=== PATIENT | male | born 1950 | race Caucasian/White ===

== ENCOUNTER → 2023-08-28 | Outpatient (CLI) | payer MEDICARE | END | disposition home or self-care (01) | LOC: RAD 15:57 | PROVIDERS: ATTEND Nurse Practitioner Family | DX: M47.27 Other spondylosis with radiculopathy, lumbosacral region (principal); M48.061 Spinal stenosis, lumbar region without neurogenic claudication | CPT/HCPCS: 72100 ==

== ENCOUNTER → 2023-10-02 | Outpatient (CLI) | payer MEDICARE | END | disposition home or self-care (01) | LOC: RAD 10:32 | PROVIDERS: ATTEND Nurse Practitioner Family | DX: M47.26 Other spondylosis with radiculopathy, lumbar region (principal); M48.061 Spinal stenosis, lumbar region without neurogenic claudication | CPT/HCPCS: 72148 ==

== ENCOUNTER → 2023-12-05 | Outpatient (CLI) | payer MEDICARE | END | disposition home or self-care (01) | LOC: RAD 10:01 | PROVIDERS: ATTEND Specialist | DX: Z01.810 Encounter for preprocedural cardiovascular examination (principal); I08.1 Rheumatic disorders of both mitral and tricuspid valves; I25.10 Atherosclerotic heart disease of native coronary artery without angina pectoris; I10 Essential (primary) hypertension; R00.1 Bradycardia, unspecified; E78.5 Hyperlipidemia, unspecified; Z95.1 Presence of aortocoronary bypass graft | CPT/HCPCS: 78452; 93306; A9500 ==

== ENCOUNTER → 2023-12-05 | Outpatient (CLI) | payer MEDICARE ==
[2023-12-05 14:41] LABS: BASOPHIL % 0.7 % (0.0-0.2); EOSINOPHIL # 0.2 10^3/uL (0.0-0.2); EOSINOPHIL % 5.3 % (0.0-5.0); HEMATOCRIT(ML) 43.2 % (37.0-53.0); HEMOGLOBIN 14.9 g/dL (13.9-16.3); LYMPHOCYTES # 1.33 10^3/uL1 (1.0-4.8); LYMPHOCYTES % 31.9 % (24.0-44.0); MEAN CORP HGB 32.3 pg (26-34); MEAN CORP HGB CONCENTRATION 34.5 g/dL (33-36.5); MEAN CORP VOLUME 93.7 fL (78-100); MONOCYTES # 0.4 10^3/uL (0.3-0.8); MONOCYTES % 8.4 % (5.0-12.0); NEUTROPHIL # 2.2 10^3/uL (1.8-7.7); NEUTROPHILS % 53.5 % (41.0-85.0); PLATELET COUNT 193 10^3/uL (150-400); RED BLOOD CELL 4.61 10^6/uL (4.50-5.90); RED CELL DISTRIBUTION WIDTH 11.9 % (11.5-14.5); WHITE BLOOD CELL 4.2 10^3/uL (4.5-11.0)
[2023-12-05 14:42] LABS: +ADD MANUAL DIFF(NO CHRG) NO
[2023-12-05 17:46] LABS: ALBUMIN(ML) 3.9 g/dL (3.4-5.0); ALBUMIN/GLOBULIN RATIO 1.218; ANION GAP 11.5; BUN/CREATININE RATIO 14.67 (10.0-20.0); C-REACTIVE PROTEIN 0.18 mg/dL (0.00-5.00); CALCIUM 8.8 mg/dL (8.4-10.5); CARBON DIOXIDE 27.4 mmol/L (20.0-32); CREATININE SERUM 1.09 mg/dL (0.59-1.40); EST GFR, NON-AA 66.7 (>/=60); LDL/HDL RATIO 1.3; POTASSIUM 3.9 mmol/L (3.6-5.2)
== END | disposition home or self-care (01) ==
LOC: NPLAB 13:32
PROVIDERS: ATTEND Specialist
DX: I10 Essential (primary) hypertension (principal); E78.00 Pure hypercholesterolemia, unspecified; E55.9 Vitamin D deficiency, unspecified
CPT/HCPCS: 36415; 80053; 80061; 82306; 84439; 84443; 85025; 86140

== ENCOUNTER → 2023-12-15 | Outpatient (CLI) | payer MEDICARE ==
[2023-12-15 10:04] LABS: PROTHROMBIN PROTIME 10.6 SEC (9.7-11.6)
== END | disposition home or self-care (01) ==
LOC: LAB 08:00
PROVIDERS: ATTEND Nurse Practitioner Family
DX: Z01.812 Encounter for preprocedural laboratory examination (principal); E78.5 Hyperlipidemia, unspecified; I10 Essential (primary) hypertension; I25.2 Old myocardial infarction; Z79.01 Long term (current) use of anticoagulants
CPT/HCPCS: 36415; 85610; 85730

== ENCOUNTER → 2024-07-23 | Outpatient (CLI) | payer MEDICARE | END | disposition home or self-care (01) | LOC: RAD 10:14 | PROVIDERS: ATTEND Orthopaedic Surgery | DX: S52.611A Displaced fracture of right ulna styloid process, initial encounter for closed fracture (principal); M19.041 Primary osteoarthritis, right hand; X58.XXXA Exposure to other specified factors, initial encounter; Y93.89 Activity, other specified; Y92.89 Other specified places as the place of occurrence of the external cause; Y99.9 Unspecified external cause status | CPT/HCPCS: 73130-RT ==

== ENCOUNTER 2024-09-04 05:55 | Day surgery (SDC) | payer MEDICARE ==
[2024-09-02 14:21] VITALS: BP 134/67; PULSE 45; RESP 18; TEMP 98.1; O2SAT 96
[2024-09-02 15:20] LABS: BASOPHIL % 0.8 % (0.2-1.2); EOSINOPHIL # 0.3 10^3/uL (0.0-0.2); EOSINOPHIL % 4.9 % (0.0-5.0); HEMATOCRIT(ML) 41.5 % (37.0-53.0); HEMOGLOBIN 14.1 g/dL (13.9-16.3); LYMPHOCYTES # 1.69 10^3/uL1 (1.0-4.8); LYMPHOCYTES % 33.4 % (24.0-44.0); MEAN CORP HGB 32.4 pg (26-34); MEAN CORP VOLUME 95.4 fL (78-100); MONOCYTES # 0.5 10^3/uL (0.3-0.8); MONOCYTES % 9.5 % (5.0-12.0); NEUTROPHIL # 2.6 10^3/uL (1.8-7.7); NEUTROPHILS % 51.2 % (41.0-85.0); PLATELET COUNT 163 10^3/uL (150-400); RED BLOOD CELL 4.35 10^6/uL (4.50-5.90); RED CELL DISTRIBUTION WIDTH 12.2 % (11.5-14.5); WHITE BLOOD CELL 5.1 10^3/uL (4.5-11.0)
[2024-09-02 15:21] LABS: +ADD MANUAL DIFF(NO CHRG) NO
[2024-09-02 15:37] LABS: ALBUMIN(ML) 3.8 g/dL (3.4-5.0); ALBUMIN/GLOBULIN RATIO 1.117; ANION GAP 11.7; CALCIUM 9.1 mg/dL (8.4-10.5); CARBON DIOXIDE 29.3 mmol/L (20.0-32); CREATININE SERUM 0.96 mg/dL (0.59-1.40)
[2024-09-02 15:50] LABS: BUN/CREATININE RATIO 14.58 (10.0-20.0)
[~2024-09-04] VITALS: Ht 175.3 cm; Wt 88.5 kg
[2024-09-04] VITALS (21 sets, daily range): BP systolic 124–173; BP diastolic 7–96; PULSE 40–61; RESP 16–18; TEMP 97.4–98.1; O2SAT 92–100
[~2024-09-04 05:55] MED LIST: AMLO-169 PO; EZET10TA81 PO; LEVO25TA4 PO
[2024-09-04] MEDS ORDERED: NS 1000ML 1,000 ML ONE ×2 (06:00→07:57)
[2024-09-04] MEDS ORDERED: ANCEF 2 GM/D5W 50ML 50 ML IV ONE (06:00)
[2024-09-04] MEDS: NS 1000ML 1,000 ML IV ONE (06:35)
[2024-09-04] MEDS ORDERED: ROSU40TA PO (06:39)
[2024-09-04] MEDS ORDERED: LEVO50TA6 PO (06:39)
[2024-09-04] MEDS ORDERED: SODIUM CHLORIDE IRR BOTTLE IR ONE (07:22)
[2024-09-04] MEDS ORDERED: LIDOCAINE 1% VIAL ONE (07:22)
[2024-09-04] MEDS ORDERED: XYLOCAINE 1%-EPI 1:100,000 ONE (07:23)
[2024-09-04] MEDS ORDERED: DIPRIVAN IV ONE ×3 (07:35→09:06)
[2024-09-04] MEDS: ANCEF 2 GM/D5W 50ML 50 ML IV ONE (07:53)
== END 2024-09-04 11:37 | disposition home or self-care (01) ==
LOC: SDC 05:55
PROVIDERS: ATTEND Orthopaedic Surgery
DX: M18.11 Unilateral primary osteoarthritis of first carpometacarpal joint, right hand (principal); I10 Essential (primary) hypertension; G89.29 Other chronic pain; I25.10 Atherosclerotic heart disease of native coronary artery without angina pectoris; E78.2 Mixed hyperlipidemia; E03.9 Hypothyroidism, unspecified; Z95.5 Presence of coronary angioplasty implant and graft; Z79.890 Hormone replacement therapy; Z79.899 Other long term (current) drug therapy
CPT/HCPCS: 80053; 85025; 36415; 93005; 25448; 73130; J7030 ×2; C1713; A4649; J0690 ×2; J2003; A4217; J2704 ×3; 76000

== ENCOUNTER → 2024-09-30 | Outpatient (CLI) | payer MEDICARE ==
[~2024-09-30] MED LIST changes: +LEVO50TA6 PO; +ROSU40TA PO
== END | disposition home or self-care (01) ==
LOC: RAD 08:38
PROVIDERS: ATTEND Nurse Practitioner
DX: M18.11 Unilateral primary osteoarthritis of first carpometacarpal joint, right hand (principal); M19.041 Primary osteoarthritis, right hand
CPT/HCPCS: 73130-RT

== ENCOUNTER 2025-06-30 14:17 | Observation (INO) | payer MEDICARE ==
[~2025-06-30] VITALS: Ht 175.3 cm; Wt 87.5 kg
[2025-06-30 15:06] VITALS: BP 166/66; PULSE 56; RESP 18; TEMP 98; O2SAT 98
[2025-06-30] MEDS ORDERED: VANCOMYCIN 1.5 GM/300 ML BAG 300 ML IV ONE (15:51)
[2025-06-30] MEDS ORDERED: NS 100ML 100 ML IV ONE ×2 (15:52→21:42)
[2025-06-30 16:00] VITALS: BP 154/65; PULSE 48; RESP 18; TEMP 98; O2SAT 98
[2025-06-30] MEDS: ZOSYN 3.375 GM 3.375 GM in NS 100ML 100 ML IV STA (16:01)
[2025-06-30] MEDS: VANCOMYCIN 1.5 GM/300 ML BAG 300 ML IV STA (16:02)
[2025-06-30 16:15] LABS: BASOPHIL # 0.0 10^3/uL (0.0-0.1); BASOPHIL % 0.7 % (0.2-1.2); EOSINOPHIL # 0.2 10^3/uL (0.0-0.2); EOSINOPHIL % 2.7 % (0.0-5.0); HEMATOCRIT(ML) 41.4 % (37.0-53.0); IG % 0.00 % (0.00-0.50); LYMPHOCYTES # 1.62 10^3/uL1 (1.0-4.8); LYMPHOCYTES % 29.0 % (24.0-44.0); MEAN CORP HGB 32.7 pg (26-34); MEAN CORP HGB CONCENTRATION 33.8 g/dL (33-36.5); MEAN CORP VOLUME 96.7 fL (78-100); MONOCYTES # 0.6 10^3/uL (0.3-0.8); MONOCYTES % 10.6 % (5.0-12.0); NEUTROPHIL # 3.2 10^3/uL (1.8-7.7); NEUTROPHILS % 57.0 % (41.0-85.0); RED BLOOD CELL 4.28 10^6/uL (4.50-5.90); RED CELL DISTRIBUTION WIDTH 11.3 % (11.5-14.5); WHITE BLOOD CELL 5.6 10^3/uL (4.5-11.0)
[2025-06-30 16:16] LABS: ALANINE AMINOTRANSFERASE(ML) 61.0 U/L (12-78); ALBUMIN(ML) 3.3 g/dL (3.4-5.0); CREATININE SERUM 0.78 mg/dL (0.59-1.40); EST GFR, NON-AA 97.8 (>/=60)
[2025-06-30 17:00] VITALS: BP 149/61; PULSE 46; RESP 18; TEMP 98; O2SAT 98
[2025-06-30 18:00] VITALS: BP 154/62; PULSE 49; RESP 18; TEMP 98; O2SAT 98
[2025-06-30 19:00] VITALS: BP 158/65; PULSE 50; RESP 18; TEMP 98; O2SAT 98
[2025-06-30 19:40] VITALS: BP 138/70; PULSE 46; RESP 20; TEMP 96; O2SAT 99
[2025-06-30] MEDS ORDERED: ACET325T12 PO (21:03)
[2025-06-30] MEDS ORDERED: HYDR-3105 PO (21:13)
[2025-06-30] MEDS ORDERED: PREG100C PO (21:13)
[2025-06-30] MEDS ORDERED: NS 250ML 250 ML ONE (21:43)
[2025-06-30] MEDS: LOVENOX SQ SCH (21:51)
[2025-06-30] MEDS ORDERED: MORPHINE SULFATE IV PRN ×2 (22:00→22:30)
[2025-06-30] MEDS ORDERED: APRESOLINE IV PRN (22:00)
[2025-06-30] MEDS ORDERED: DEXTROSE 50%-WATER SYRINGE IV PRN (22:00)
[2025-06-30] MEDS ORDERED: ZOFRAN IV PRN (22:00)
[2025-06-30] MEDS: ZOSYN 3.375 GM 3.375 GM in NS 100ML 100 ML IV SCH (22:45)
[2025-07-01 00:20] VITALS: BP_SYST 133; BP_SYST 138; BP_DIAS 62; BP_DIAS 70; PULSE 46; PULSE 48; RESP 20; TEMP 96; TEMP 97.6; O2SAT 95; O2SAT 99
[2025-07-01 03:31] VITALS: BP 127/65; PULSE 47; RESP 20; TEMP 97.6; O2SAT 96
[2025-07-01] MEDS: VANCOMYCIN 1 GRAM/200 ML BAG 200 ML IV SCH (03:43)
[2025-07-01 05:13] LABS: BASOPHIL # 0.0 10^3/uL (0.0-0.1); BASOPHIL % 1.0 % (0.2-1.2); EOSINOPHIL # 0.2 10^3/uL (0.0-0.2); EOSINOPHIL % 5.1 % (0.0-5.0); HEMATOCRIT(ML) 36.1 % (37.0-53.0); IG % 0.30 % (0.00-0.50); LYMPHOCYTES # 1.25 10^3/uL1 (1.0-4.8); LYMPHOCYTES % 31.6 % (24.0-44.0); MEAN CORP HGB 33.2 pg (26-34); MEAN CORP HGB CONCENTRATION 35.5 g/dL (33-36.5); MEAN CORP VOLUME 93.8 fL (78-100); MONOCYTES # 0.5 10^3/uL (0.3-0.8); MONOCYTES % 11.6 % (5.0-12.0); NEUTROPHIL # 2.0 10^3/uL (1.8-7.7); NEUTROPHILS % 50.4 % (41.0-85.0); RED BLOOD CELL 3.85 10^6/uL (4.50-5.90); RED CELL DISTRIBUTION WIDTH 11.5 % (11.5-14.5); WHITE BLOOD CELL 4.0 10^3/uL (4.5-11.0)
[2025-07-01 05:30] LABS: ALANINE AMINOTRANSFERASE(ML) 51.0 U/L (12-78); ALBUMIN(ML) 2.9 g/dL (3.4-5.0); CREATININE SERUM 0.82 mg/dL (0.59-1.40); EST GFR, NON-AA 92.4 (>/=60)
[2025-07-01] MEDS ORDERED: NS 100ML 100 ML IV ONE ×2 (05:34→20:30)
[2025-07-01 07:47] VITALS: BP 130/73; PULSE 47; RESP 18; TEMP 97.7; O2SAT 95
[2025-07-01 10:58] VITALS: BP 136/79; PULSE 51; RESP 18; TEMP 97.8; O2SAT 95
[2025-07-01] MEDS: NORCO 10MG PO ONE (11:14)
[2025-07-01 16:38] VITALS: BP 106/63; PULSE 46; RESP 18; TEMP 97.4; O2SAT 97
[2025-07-01 19:17] VITALS: BP 113/46; PULSE 47; RESP 20; TEMP 98.4; O2SAT 97
[2025-07-01] MEDS: NORCO 10MG PO SCH (20:33)
[2025-07-02 00:20] VITALS: BP 109/56; PULSE 44; RESP 16; TEMP 97.5; O2SAT 95
[2025-07-02 04:26] VITALS: BP 118/62; PULSE 40; RESP 18; TEMP 97.5; O2SAT 96
[2025-07-02] MEDS ORDERED: NS 100ML 100 ML IV ONE ×2 (04:29→12:55)
[2025-07-02 05:21] LABS: BASOPHIL # 0.1 10^3/uL (0.0-0.1); BASOPHIL % 1.1 % (0.2-1.2); EOSINOPHIL # 0.3 10^3/uL (0.0-0.2); EOSINOPHIL % 5.7 % (0.0-5.0); HEMATOCRIT(ML) 36.6 % (37.0-53.0); IG % 0.20 % (0.00-0.50); LYMPHOCYTES # 1.88 10^3/uL1 (1.0-4.8); LYMPHOCYTES % 41.1 % (24.0-44.0); MEAN CORP HGB 32.3 pg (26-34); MEAN CORP HGB CONCENTRATION 34.4 g/dL (33-36.5); MEAN CORP VOLUME 93.8 fL (78-100); MONOCYTES # 0.4 10^3/uL (0.3-0.8); MONOCYTES % 8.3 % (5.0-12.0); NEUTROPHIL # 2.0 10^3/uL (1.8-7.7); NEUTROPHILS % 43.6 % (41.0-85.0); RED BLOOD CELL 3.90 10^6/uL (4.50-5.90); RED CELL DISTRIBUTION WIDTH 11.6 % (11.5-14.5); WHITE BLOOD CELL 4.6 10^3/uL (4.5-11.0)
[2025-07-02 05:56] LABS: ALANINE AMINOTRANSFERASE(ML) 50.0 U/L (12-78); ALBUMIN(ML) 2.9 g/dL (3.4-5.0); CREATININE SERUM 0.97 mg/dL (0.59-1.40); EST GFR, NON-AA 76.1 (>/=60)
[2025-07-02 08:58] VITALS: BP 139/63; PULSE 50; RESP 20; TEMP 98.1; O2SAT 95
[2025-07-02] MEDS ORDERED: AMOX1TAB12 PO (11:31)
[2025-07-02 12:09] VITALS: BP 141/70; PULSE 56; RESP 20; TEMP 98; O2SAT 95
[2025-07-02] MEDS ORDERED: WATER 20 ML ONE (12:54)
[2025-07-02 14:14] VITALS: BP 141/70; PULSE 56; RESP 20; TEMP 98; O2SAT 95
== END 2025-07-02 14:10 | disposition home or self-care (01) ==
LOC: ER 14:17 → OBS 17:46
PROVIDERS: ADMIT Hospitalist; ATTEND Hospitalist
DX: L03.116 Cellulitis of left lower limb (principal); E03.9 Hypothyroidism, unspecified; I10 Essential (primary) hypertension; M79.89 Other specified soft tissue disorders; R60.0 Localized edema; G62.9 Polyneuropathy, unspecified; E78.00 Pure hypercholesterolemia, unspecified; Z79.899 Other long term (current) drug therapy
CPT/HCPCS: 96372 ×2; 96365; 96366 ×3; 96368; 99285; 73610; 73630; 93971; 80053 ×3; 85025 ×3; 36415 ×3; 85651; 86140; 83036; 83735; G0378 ×4; J7050; J1650 ×2; J2543 ×3; A4216; 80202

== ENCOUNTER 2025-07-13 08:38 | Emergency (ER) | payer MEDICARE ==
[~2025-07-13] VITALS: Ht 175.3 cm; Wt 86.2 kg
[~2025-07-13 08:38] MED LIST changes: +ACET325T12 PO; +AMOX1TAB12 PO; +HYDR-3105 PO; +PREG100C PO
[2025-07-13 08:43] VITALS: BP 154/81; PULSE 51; RESP 18; TEMP 97.8; O2SAT 97
== END 2025-07-13 09:08 | disposition home or self-care (01) ==
LOC: ER 08:38
DX: I10 Essential (primary) hypertension (principal); E78.00 Pure hypercholesterolemia, unspecified; Z76.0 Encounter for issue of repeat prescription; Z79.890 Hormone replacement therapy
CPT/HCPCS: 99282